=== PATIENT | male | born 1995 | race African-American/Black ===

== ENCOUNTER 2018-01-05 21:11 | Emergency (ER) | payer MEDICAID ==
[2018-01-05 22:04] VITALS: BP 139/87
[2018-01-05] MEDS ORDERED: Lidocaine 1% MPF* 2 ML VIAL INJ ONE (22:21)
--- NOTE | 2018-01-05 22:22 | UC ---
UC General HPI - HPI Summary HPI Summary: Lost back of ear ring in L lobe just bioassayist. - History of Current Complaint Chief Complaint: UCGeneralIllness Stated Complaint: EAR COMP. Time Seen by Provider: 01/05/18 22:16 Hx Obtained From: Patient Onset/Duration: Sudden Onset Timing: Constant Pain Intensity: 0 Alleviating: nothing Associated Signs & Symptoms: Negative: Fever - Allergy/Home Medications Allergies/Adverse Reactions: Allergies Allergy/AdvReac Type Severity Reaction Status Date / Time No Known Allergies Allergy Verified 01/05/18 21:57 Home Medications: Home Medications Phenylephrine/Acetaminophn/Cpm [Nighttime Sinus Congestio] 1 tab PO DAILY PRN [History Confirmed 01/05/18] PMH/Surg Hx/FS Hx/Imm Hx Previously Healthy: Yes - Surgical History Surgical History: None - Family History Known Family History: Positive: None - Social History Occupation: Student Alcohol Use: Occasionally Substance Use Type: None Smoking Status (MU): Never Smoked Tobacco - Immunization History Vaccination Up to Date: Yes Review of Systems Constitutional: Negative Skin: Other - FB L ear lobe Eyes: Negative ENT: Negative Respiratory: Negative Cardiovascular: Negative Gastrointestinal: Negative Genitourinary: Negative Motor: Negative Neurovascular: Negative Musculoskeletal: Negative Neurological: Negative Psychological: Negative Is Patient Immunocompromised?: No All Other Systems Reviewed And Are Negative: Yes Physical Exam Triage Information Reviewed: Yes Appearance: Well-Appearing Vital Signs: Initial Vital Signs Temp 99.6 F 01/05/18 21:59 Pulse 83 01/05/18 21:59 Resp 16 01/05/18 21:59 BP 139/87 01/05/18 21:59 Pulse Ox 99 01/05/18 21:59 Vital Signs Reviewed: Yes Eyes: Positive: Conjunctiva Clear ENT: Positive: Normal ENT inspection, Other - L ear lobe FB palpable with no erythema or d/c. Neck: Positive: Supple, Nontender, No Lymphadenopathy Respiratory: Positive: Lungs clear, Normal breath sounds Cardiovascular: Positive: RRR, No Murmur Abdomen Description: Positive: Nontender, No Organomegaly, Soft Bowel Sounds: Positive: Present Musculoskeletal: Positive: ROM Intact Neurological: Positive: Alert Psychological: Positive: Age Appropriate Behavior Skin Exam: Normal Course/Dx - Course Course Of Treatment: procedure: time out. L ear procedureprep betadine. local 0.5ml 1% lidocaine. FB removed from piercing hole on back of ear with a splinter forcep, only scant bleeding. tolerated well. site wash with soap/water after. - Differential Dx - Multi-Symptom Provider Diagnoses: FB removed L ear lobe Discharge - Sign-Out/Discharge Documenting (check all that apply): Patient Departure All imaging exams completed and their final reports reviewed: No Studies - Discharge Plan Condition: Stable Disposition: HOME Patient Education Materials: Soft Tissue Foreign Body (ED) Referrals: [facility] [Outside] - If Needed - Billing Disposition and Condition Condition: STABLE Disposition: Home
== END 2018-01-05 22:45 | disposition home or self-care (01) ==
LOC: UCCORT 21:11
DX: S00.452A Superficial foreign body of left ear, initial encounter (principal); W45.8XXA Other foreign body or object entering through skin, initial encounter; Y93.9 Activity, unspecified; Y92.9 Unspecified place or not applicable
CPT/HCPCS: 10120; 99201; G0463

== ENCOUNTER 2018-07-22 11:53 | Emergency (ER) | payer SELFPAY ==
[2018-07-22 12:31] VITALS: BP 141/65
--- NOTE | 2018-07-22 13:04 | UC ---
Back Pain HPI - HPI Summary HPI Summary: 22 year old male with no significant pmhx here with lower back pain after lifting weights while training. Reports left mid back pain worsened with movement. Tried heating pads. No urinary symptoms. No sensory or motor deficit. - History of Current Complaint Chief Complaint: UCBackPain Stated Complaint: LOW BACK PAIN Time Seen by Provider: 07/22/18 12:54 Onset/Duration: Sudden Onset, Gradual Onset Timing: Constant Severity Initially: Moderate Severity Currently: Severe Pain Intensity: 8 Character: Spasmodic Aggravating Factor(s): Movement, Lifting, Bending Alleviating Factor(s): Rest Associated Signs And Symptoms: Positive: Negative - Allergies/Home Medications Allergies/Adverse Reactions: Allergies Allergy/AdvReac Type Severity Reaction Status Date / Time No Known Allergies Allergy Verified 07/22/18 12:27 PMH/Surg Hx/FS Hx/Imm Hx Previously Healthy: Yes - Surgical History Surgical History: None - Family History Known Family History: Positive: None Negative: Diabetes - Social History Alcohol Use: None Substance Use Type: None Smoking Status (MU): Never Smoked Tobacco - Immunization History Vaccination Up to Date: Yes Review of Systems All Other Systems Reviewed And Are Negative: Yes Constitutional: Positive: Negative Skin: Positive: Negative Eyes: Positive: Negative Respiratory: Positive: Negative Cardiovascular: Positive: Negative Gastrointestinal: Positive: Negative Genitourinary: Positive: Negative Motor: Positive: Negative Neurovascular: Positive: Negative Musculoskeletal: Positive: Other: - lower back pain Neurological: Negative: Weakness, Paresthesia, Numbness Is Patient Immunocompromised?: No Physical Exam Triage Information Reviewed: Yes Vital Signs: Initial Vital Signs Temp 36.7 C 07/22/18 12:26 Pulse 56 07/22/18 12:26 Resp 14 07/22/18 12:26 BP 141/65 07/22/18 12:26 Pulse Ox 100 07/22/18 12:26 Eye Exam: Normal ENT Exam: Normal Dental Exam: Normal Neck exam: Normal Neck: Positive: 1 Respiratory Exam: Normal Cardiovascular Exam: Normal Abdominal Exam: Normal Musculoskeletal: Positive: Other: - mild tenderness paraspinal, no skin lesions Neurological Exam: Normal Psychological Exam: Normal Skin Exam: Normal Back Pain Course/Dx - Differential Dx/Diagnosis Differential Diagnosis/HQI/PQRI: Strain, Sprain Provider Diagnosis: Back muscle spasm Discharge - Sign-Out/Discharge Documenting (check all that apply): Patient Departure All imaging exams completed and their final reports reviewed: No Studies - Discharge Plan Condition: Good Disposition: HOME Prescriptions: Cyclobenzaprine (NF) [Cyclobenzaprine 5 MG (NF)] 5 mg PO TID PRN #30 tab PRN Reason: Spasms Ibuprofen TAB* [Motrin TAB* 600 MG] 600 mg PO Q6H PRN #30 tab PRN Reason: Pain Lidocaine PATCH 5%* [Lidoderm 5% Patch*] 1 patch TRANSDERM DAILY 10 Days #20 patch Patient Education Materials: Muscle Spasm (ED) Referrals: No Primary Care Phys,NOPCP [Primary Care Provider] - - Billing Disposition and Condition Condition: GOOD Disposition: Home
== END 2018-07-22 13:21 | disposition home or self-care (01) ==
LOC: UCCORT 11:53
DX: M62.830 Muscle spasm of back (principal)
CPT/HCPCS: 99212; G0463

== ENCOUNTER 2018-08-23 07:02 | Emergency (ER) | payer MEDICAID ==
[2018-08-23 07:13] VITALS: BP 139/78
--- NOTE | 2018-08-23 07:24 | UC ---
General HPI - HPI Summary HPI Summary: C/O substernal chest pain and left sided neck pain - did not sleep well due to the pain. Patient states hurt more when he pushed on it. When he sat up and took ibuprofen 800 mg his symptoms slowly improved but it took a few hours. He wanted to get checked out to make sure there was nothing wrong. He lifts weighs 4x/week. REcent URI about a week ago. No SOB. No nausea. No diaphoresis. No tobacco, EtOH or ilicit drugs. Attends [employer]. PMHx : none. FmHx: unremarkable. Meds; REviewed - History of Current Complaint Chief Complaint: UCChestPain Stated Complaint: CHEST PAINS Time Seen by Provider: 08/23/18 07:09 Pain Intensity: 3 - Allergy/Home Medications Allergies/Adverse Reactions: Allergies Allergy/AdvReac Type Severity Reaction Status Date / Time No Known Allergies Allergy Verified 08/23/18 07:13 Home Medications: Home Medications NK [No Home Medications Reported] 08/23/18 [History Confirmed 08/23/18] PMH/Surg Hx/FS Hx/Imm Hx Previously Healthy: Yes - Surgical History Surgical History: None - Family History Known Family History: Positive: None Negative: Diabetes - Social History Alcohol Use: None Substance Use Type: None Smoking Status (MU): Never Smoked Tobacco - Immunization History Vaccination Up to Date: Yes Review of Systems All Other Systems Reviewed And Are Negative: Yes Constitutional: Positive: Negative Cardiovascular: Positive: Chest Pain Physical Exam Triage Information Reviewed: Yes Appearance: Well-Appearing Vital Signs: Initial Vital Signs Temp 98.1 F 08/23/18 07:09 Pulse 60 08/23/18 07:09 Resp 18 08/23/18 07:09 BP 139/78 08/23/18 07:09 Pulse Ox 100 08/23/18 07:09 Vital Signs Reviewed: Yes Eyes: Positive: Conjunctiva Clear ENT: Positive: Normal ENT inspection Neck exam: Normal Neck: Positive: Supple, Nontender Respiratory: Positive: Lungs clear, Normal breath sounds Cardiovascular: Positive: RRR, Other: - soft systolic murmur Abdomen Description: Positive: Nontender, Soft Diagnostics - EKG Cardiac Rate: NL - ST changes consistent with early repolarization Course/Dx - Course Course Of Treatment: This is a 22 yr old with chest pain Plan Take it easy with heavy lifting REcommend ibuprofen 600 mg every 4-6 hours as needed for pain - take with food If you develop chest pain with shortness of breath, especially if you are exercising go directly to the ER - Diagnoses Provider Diagnosis: Chest pain, Costochondritis, acute Discharge - Sign-Out/Discharge Documenting (check all that apply): Patient Departure All imaging exams completed and their final reports reviewed: No Studies - Discharge Plan Condition: Good Disposition: HOME Patient Education Materials: Costochondritis (ED) Referrals: No Primary Care Phys,NOPCP [Primary Care Provider] - Additional Instructions: Take it easy with heavy lifting REcommend ibuprofen 600 mg every 4-6 hours as needed for pain - take with food If you develop chest pain with shortness of breath, especially if you are exercising go directly to the ER - Billing Disposition and Condition Condition: GOOD Disposition: Home
== END 2018-08-23 07:30 | disposition home or self-care (01) ==
LOC: UCCORT 07:02
DX: M94.0 Chondrocostal junction syndrome [Tietze] (principal); R07.89 Other chest pain; M54.2 Cervicalgia
CPT/HCPCS: 93005; 99211; G0463

== ENCOUNTER 2018-09-04 12:56 | Emergency (ER) | payer MEDICAID ==
[2018-09-04 13:24] VITALS: BP 124/75
--- NOTE | 2018-09-04 13:36 | UC ---
Neck Pain HPI - HPI Summary HPI Summary: right side neck pain x 2 hrs sudden onset, puller her neck as he was working out at Gym no radiation of the pain , pain is 8 out of 10 worse with neck movement better with rest, no numbness of right arm / hand - History of Current Complaint Chief Complaint: UCGeneralIllness Stated Complaint: MUSCLE PAIN IN NECK Time Seen by Provider: 09/04/18 13:22 Hx Obtained From: Patient Onset/Duration Of Injury/Symptoms: Hours - 2 Mechanism Of Injury: No Known Trauma Timing: Constant Onset/Duration: Sudden Onset, Still Present Severity: Moderate Pain Intensity: 8 Location: Discrete At: - right side of neck Character: Sharp, Stiff, Spasmotic Aggravating Factors: Movement Alleviating Factors: Position Associated Signs & Symptoms: Positive: Headache. Negative: Swelling, Redness, Bruising, Fever, Nuchal Rigity, Weakness, Paresthesia - Allergies/Home Medications Allergies/Adverse Reactions: Allergies Allergy/AdvReac Type Severity Reaction Status Date / Time No Known Allergies Allergy Verified 09/04/18 13:20 Home Medications: Home Medications Cyclobenzaprine TAB* [Flexeril 10 MG TAB*] 10 mg PO BID PRN 09/04/18 [History Confirmed 09/04/18] PMH/Surg Hx/FS Hx/Imm Hx Previously Healthy: Yes - Surgical History Surgical History: None - Family History Known Family History: Positive: None Negative: Diabetes - Social History Alcohol Use: None Substance Use Type: None Smoking Status (MU): Never Smoked Tobacco - Immunization History Vaccination Up to Date: Yes Review of Systems All Other Systems Reviewed And Are Negative: Yes Constitutional: Positive: Negative Skin: Positive: Negative Eyes: Positive: Negative ENT: Positive: Negative Respiratory: Positive: Negative Cardiovascular: Positive: Negative Is Patient Immunocompromised?: No Physical Exam Triage Information Reviewed: Yes Appearance: Well-Nourished, Pain Distress Vital Signs: Initial Vital Signs Temp 98.0 F 09/04/18 13:19 Pulse 60 09/04/18 13:19 Resp 15 09/04/18 13:19 BP 124/75 09/04/18 13:19 Pulse Ox 99 09/04/18 13:19 Vital Signs Reviewed: Yes Eye Exam: Normal Eyes: Positive: Conjunctiva Clear ENT: Positive: Normal ENT inspection, Hearing grossly normal, Pharynx normal, TMs normal Neck: Positive: Tenderness @ - right posterior neck muscle tightness right side , Other: - limited ROM on rotation , side bending. Negative: Nuchal Rigidity, Enlarged Nodes @ Respiratory: Positive: Chest non-tender, Lungs clear, Normal breath sounds Cardiovascular: Positive: RRR, No Murmur, Pulses Normal Neck Pain Course/Dx - Differential Dx/Diagnosis Provider Diagnosis: Neck muscle strain Discharge - Sign-Out/Discharge Documenting (check all that apply): Patient Departure All imaging exams completed and their final reports reviewed: No Studies - Discharge Plan Condition: Stable Disposition: HOME Prescriptions: Cyclobenzaprine TAB* [Flexeril 10 MG TAB*] 10 mg PO BID PRN #20 tab PRN Reason: Pain Naproxen [Naproxen 500 mg tab] 500 mg PO BID #20 tablet Patient Education Materials: Acute Neck Pain (ED) Referrals: No Primary Care Phys,NOPCP [Primary Care Provider] - If Needed - Billing Disposition and Condition Condition: STABLE Disposition: Home
== END 2018-09-04 13:41 | disposition home or self-care (01) ==
LOC: UCCORT 12:56
DX: S16.1XXA Strain of muscle, fascia and tendon at neck level, initial encounter (principal); X50.3XXA Overexertion from repetitive movements, initial encounter; Y93.B9 Activity, other involving muscle strengthening exercises; Y92.39 Other specified sports and athletic area as the place of occurrence of the external cause
CPT/HCPCS: 99212; G0463

== ENCOUNTER 2018-12-25 17:26 | Emergency (ER) | payer BC, MEDICAID ==
[2018-12-25 17:49] VITALS: BP 133/73
--- NOTE | 2018-12-25 18:26 | UC ---
General HPI - HPI Summary HPI Summary: pt is c/o a "ccukfrpx-[id number]-[id number] sensation" in his skin on various parts of his body. it began in August. it can be random and fluctuates in intensity but activity and heat makes it worse. sometimes the sensation gets so bad, pt has to slap his skin for relief. at the end of August, he saw a PCP at home in [place] who did labs. his white blood cells were high and his vitamin D was low. he was tx with vitamin D supplements which he felt was helping at first but then he had recurrent symptoms while still on the tx. in mid September, he saw dermatology who felt it "was internal" and not skin related. towards the end of September/early October, he saw a neurologist who examined him as well but no labs or other testing was done. he was told it was due to a lack of vitamins. pt denies any weakness, fever, chills and muscle aches. he denies any current, recent illness or associated illness. he denies any rash, joint pain. he takes no medications and has no hx drug use. he has no hx tick bite. he has no focal numbness, weakness or visual disturbances. he has no GI s/s's. he denies any PMH and FMH. - History of Current Complaint Chief Complaint: UCGeneralIllness Stated Complaint: PINS/NEEDLES FEELING ALL OVER BODY Time Seen by Provider: 12/25/18 18:15 Hx Obtained From: Patient Pain Intensity: 0 - Allergy/Home Medications Allergies/Adverse Reactions: Allergies Allergy/AdvReac Type Severity Reaction Status Date / Time No Known Allergies Allergy Verified 12/25/18 17:49 PMH/Surg Hx/FS Hx/Imm Hx Previously Healthy: Yes - Surgical History Surgical History: None - Family History Known Family History: Positive: None Negative: Diabetes - Social History Occupation: Student Lives: Dormitory/Roommates Alcohol Use: Occasionally Substance Use Type: None Smoking Status (MU): Never Smoked Tobacco - Immunization History Vaccination Up to Date: Yes Review of Systems All Other Systems Reviewed And Are Negative: Yes Constitutional: Negative: Fever, Chills, Fatigue Skin: Negative: Rash Motor: Negative: Weakness Musculoskeletal: Negative: Arthralgia, Decreased ROM, Edema, Myalgia Neurological: Positive: Paresthesia. Negative: Headache, Weakness, Numbness Physical Exam Triage Information Reviewed: Yes Appearance: Well-Appearing Vital Signs: Initial Vital Signs Temp 97.3 F 12/25/18 17:42 Pulse 68 12/25/18 17:42 Resp 16 12/25/18 17:42 BP 133/73 12/25/18 17:42 Pulse Ox 100 12/25/18 17:42 Vital Signs Reviewed: Yes Eyes: Positive: Conjunctiva Clear, Other: - PERRL, EOMI ENT: Positive: Pharynx normal, TMs normal. Negative: Nasal congestion, Nasal drainage Neck: Positive: Supple, Nontender, No Lymphadenopathy Respiratory: Positive: Lungs clear, Normal breath sounds, No respiratory distress Cardiovascular: Positive: RRR, No Murmur, Pulses Normal Abdomen Description: Positive: Nontender, No Organomegaly, Soft Bowel Sounds: Positive: Present Musculoskeletal: Positive: ROM Intact, No Edema Neurological: Positive: Alert, Other: - A&Ox3. CN 2-12 intact. 5/5 strength, 2+ reflexes and sensation intact to light touch x4. Steady gait. negative rhomberg and pronator drift. Performs rapid alternating moves with ease. Psychological: Positive: Age Appropriate Behavior Skin Exam: Normal Skin: Negative: Rashes Course/Dx - Differential Dx - Multi-Symptom Differential Diagnoses: Other - Exam is reassuring; however, pt has unexplained Paresthesias that are distressing to him. Potential causes are broad and beyond the scope of UC thus I will give him a referal to neurology. He agrees to go to the ER for changes or worsening. - Diagnoses Provider Diagnosis: Paresthesias Discharge ED - Sign-Out/Discharge Documenting (check all that apply): Patient Departure All imaging exams completed and their final reports reviewed: No Studies - Discharge Plan Condition: Stable Disposition: HOME Patient Education Materials: Paresthesia (ED) Referrals: Doug Guillen MD [Medical Doctor] - As Soon As Possible Additional Instructions: FOLLOW UP WITH DR GUILLEN OR ONE OF HIS ASSOCIATES SOON POSSIBLE. GO TO THE ER FOR ANY CHANGES OR WORSENING - Billing Disposition and Condition Condition: STABLE Disposition: Home
== END 2018-12-25 19:03 | disposition home or self-care (01) ==
LOC: UCCORT 17:26
DX: R20.2 Paresthesia of skin (principal)
CPT/HCPCS: 99211; G0463

== ENCOUNTER 2019-02-05 22:02 | Emergency (ER) | payer BC ==
--- NOTE | 2019-02-06 01:00 | ED ---
Complex/Multi-Sys Presentation - HPI Summary HPI Summary: 23-year-old male presents with paresthesias for the past couple days. He states he has had this for couple months but in the past 3 days it has gotten worst. He states that he has paresthesias all over his body. He states he feels like a sharp pain and some tingling. No weakness. no difficulties walking. No urinary symptoms. No loss of bowel or bladder. No back pain. No headache. No chest pain or shortness breath. No dizziness. He states he has a follow-up with neurology in a couple weeks. No abdominal pain. No nausea vomiting or diarrhea. - History Of Current Complaint Chief Complaint: EDGeneral Time Seen by Provider: 02/06/19 00:10 - Allergies/Home Medications Allergies/Adverse Reactions: Allergies Allergy/AdvReac Type Severity Reaction Status Date / Time No Known Allergies Allergy Verified 02/06/19 00:39 Home Medications: Home Medications Multivitamin 1 tab PO DAILY 02/06/19 [History Confirmed 02/06/19] PMH/Surg Hx/FS Hx/Imm Hx Endocrine/Hematology History: Denies: Hx Diabetes, Hx Thyroid Disease Cardiovascular History: Denies: Hx Hypertension Respiratory History: Denies: Hx Asthma, Hx Chronic Obstructive Pulmonary Disease (COPD) GI History: Denies: Hx Ulcer - Immunization History Immunizations Up to Date: Yes Infectious Disease History: No Infectious Disease History: Denies: Hx Hepatitis, Hx Human Immunodeficiency Virus (HIV), Traveled Outside the [place] in Last 30 Days - Family History Known Family History: Positive: None Negative: Diabetes - Social History Alcohol Use: Rare Substance Use Type: Reports: None Smoking Status (MU): Never Smoked Tobacco Review of Systems Negative: Fever Negative: Chest Pain Negative: Shortness Of Breath Positive: Paresthesia All Other Systems Reviewed And Are Negative: Yes Physical Exam Triage Information Reviewed: Yes Vital Signs On Initial Exam: Initial Vitals Temp Pulse Resp BP Pulse Ox 98.6 F 63 18 152/90 99 02/05/19 22:13 02/05/19 22:13 02/05/19 22:13 02/05/19 22:13 02/05/19 22:13 Vital Signs Reviewed: Yes Appearance: Positive: Well-Appearing Skin: Positive: Warm, Dry Head/Face: Positive: Normal Head/Face Inspection Eyes: Positive: Normal, EOMI, NIK, Conjunctiva Clear ENT: Positive: Normal ENT inspection, Pharynx normal, TMs normal Respiratory/Lung Sounds: Positive: Clear to Auscultation, Breath Sounds Present Cardiovascular: Positive: Normal, RRR Musculoskeletal: Positive: Normal Neurological: Positive: Sensory/Motor Intact, Alert, Oriented to Person Place, Time, CN Intact II-III, Reflexes Intact - biceps, patella, Normal Gait, Other - sensation grossly intact Psychiatric: Positive: Normal - Vinayak Coma Scale Best Eye Response: 4 - Spontaneous Best Motor Response: 6 - Obeys Commands Best Verbal Response: 5 - Oriented Coma Scale Total: 15 Procedures - Sedation Patient Received Moderate/Deep Sedation with Procedure: No Diagnostics - Vital Signs Vital Signs Temp Pulse Resp BP Pulse Ox 02/06/19 00:00 57 99 02/05/19 23:59 55 147/90 99 02/05/19 23:58 54 99 02/05/19 22:13 98.6 F 63 18 152/90 99 - Laboratory Result Diagrams: 02/06/19 01:10 02/06/19 01:10 Lab Statement: Any lab studies that have been ordered have been reviewed, and results considered in the medical decision making process. Complex Multi-Symp Course/Dx Course Of Treatment: 23-year-old male presents with paresthesias for the past couple days. He states he has had this for couple months but in the past 3 days it has gotten worst. He states that he has paresthesias all over his body. He states he feels like a sharp pain and some tingling. No weakness. no difficulties walking. No urinary symptoms. No loss of bowel or bladder. No back pain. No headache. No chest pain or shortness breath. No dizziness. He states he has a follow-up with neurology in a couple weeks. No abdominal pain. No nausea vomiting or diarrhea. On exam has a normal neuro exam. Cranial nerves intact. lab work without significant abnormality. We'll have follow-up with neurology. Patient understands agrees with plan. - Diagnoses Differential Diagnoses/HQI/PQRI: CVA, Metabolic Abnormality, Urinary Tract Infection Provider Diagnoses: Paresthesia Discharge ED - Sign-Out/Discharge Documenting (check all that apply): Patient Departure - Discharge Plan Condition: Good Disposition: HOME Patient Education Materials: Paresthesia (ED) Referrals: No Primary Care Phys,NOPCP [Primary Care Provider] - Shayan Pickens MD [Medical Doctor] - Additional Instructions: follow up with neurology as scheduled take tyenlol as needed for pain Return to ED if develop any new or worsening symptoms - Billing Disposition and Condition Condition: GOOD Disposition: Home
[2019-02-06 01:16] LABS: ABS Basophils 0.1 10^3/ul (0-0.2); ABS Eosinophils 0.4 10^3/ul (0-0.6); ABS Lymphocytes 2.2 10^3/ul (1.0-4.8); ABS Monocytes 0.7 10^3/ul (0-0.8); Eosinophil % 4.8 %; Hematocrit 45 % (42-52); Hemoglobin 15.6 g/dL (14.0-18.0); Mean Corpuscular HGB Conc 35 g/dL (31-36); Mean Corpuscular Hemoglobin 33 pg (27-31); Mean Corpuscular Volume 95 fL (80-94); Mean Platelet Volume 10.4 fL (7.4-10.4); Platelet Count 171 10^3/uL (150-450); Red Blood Count 4.78 10^6 /uL (4.18-5.48); Red Cell Distribution Width 14 % (10-15); White Blood Count 8.4 10^3/uL (3.5-10.8)
[2019-02-06 01:33] LABS: ALT 13 U/L (7-52); Albumin 4.2 g/dL (3.2-5.2); Albumin/Globulin Ratio 1.5 (1-3); Alkaline Phosphatase 42 U/L (34-104); BUN/Creatinine Ratio 14.8 (8-20); Blood Urea Nitrogen 16 mg/dL (6-24); CO2 Carbon Dioxide 29 mmol/L (22-32); Calcium 9.2 mg/dL (8.6-10.3); Chloride 102 mmol/L (101-111); EGFR African American 103.5 (>60); EGFR Non-African American 85.5 (>60); Globulin 2.8 g/dL (2-4); Glucose 91 mg/dL (70-100); Magnesium 2.1 mg/dL (1.9-2.7); Sodium 135 mmol/L (135-145)
[2019-02-06 02:03] LABS: AST 17 U/L (13-39); Anion Gap 4 mmol/L (2-11)
[2019-02-06 02:20] LABS: TSH (Thyroid Stimulating Horm) 1.02 mcIU/mL (0.34-5.60)
[2019-02-06 03:11] VITALS: BP 146/82
== END 2019-02-06 03:00 | disposition home or self-care (01) ==
LOC: ED 22:02
DX: R20.0 Anesthesia of skin (principal); Z79.899 Other long term (current) drug therapy
CPT/HCPCS: 36415; 80053; 82607; 83605; 83735; 84443; 85025; 99283